=== PATIENT | female | born 1945 | race Caucasian/White ===

== ENCOUNTER → 2019-07-06 | Outpatient (REF) | payer MEDICARE, BC ==
[2019-07-09 00:06] LABS: ANA (HEP2) Positive (.); Lyme Disease IgG/IgM Antibodie <0.91 ISR (0.00-0.90); Lyme Disease IgM Ab Quantitati <0.80 index (0.00-0.79)
== END ==
LOC: M SFHCCLAY 10:01
PROVIDERS: ATTEND Nurse Practitioner Family
DX: M25.50 Pain in unspecified joint (principal)
CPT/HCPCS: 85652; 86038; 86431; 86617; G0463

== ENCOUNTER → 2020-05-13 | Outpatient (CLI) | payer MEDICARE, BC ==
--- NOTE | 2020-05-13 15:31 | REP ---
Clinical: Muscle sprain. Pain. Technique: AP, lateral, swimmers views of the thoracic spine. Findings: Alignment and kyphosis maintained. Generalized age-related osteopenia and moderate multilevel degenerative changes noted. Findings include minimal marginal spurring and subtle disc space narrowing. No acute fracture / compression injury or subluxation. Impression: No acute fracture / compression injury or subluxation. Electronically Signed by Mario Dixon MD 05/13/2020 03:22 P
== END ==
LOC: M WUC 14:05
PROVIDERS: ATTEND Physician Assistant
DX: S29.012A Strain of muscle and tendon of back wall of thorax, initial encounter (principal); X58.XXXA Exposure to other specified factors, initial encounter; Y92.89 Other specified places as the place of occurrence of the external cause

== ENCOUNTER → 2020-07-17 | Outpatient (REF) | payer MEDICARE, BC ==
[2020-07-24 11:14] LABS: DRVV SCREEN 46.3 SEC
[2020-07-24 11:32] LABS: PTT LUPUS TYPE ANTICOAG SCREEN 1.1 (0-1.2)
[2020-07-25 13:07] LABS: ANTI THROMBIN 3 ANTIGEN IMMUNO 104 % (72-124); ANTI THROMBIN 3 FUNCT ACTIVITY 112 % (75-135); BETA-2 GLYCOPROTEIN I ABY IGA <9 (0-25); BETA-2 GLYCOPROTEIN I ABY IGG <9 (0-20); BETA-2 GLYCOPROTEIN I ABY IGM <9 (0-32); CARDIOLIPIN IGA ANTIBODY <9 APL U/mL (0-11); CARDIOLIPIN IGG ANTIBODY <9 GPL U/mL (0-14); CARDIOLIPIN IGM ANTIBODY 11 MPL U/mL (0-12); PROTEIN C ANTIGEN 130 % (60-150); PROTEIN C FUNCTIONAL ACTIVITY 174 % (73-180); PROTEIN S ANTIGEN FREE 128 % (57-157); PROTEIN S ANTIGEN TOTAL 124 % (60-150); PROTEIN S FUNCTIONAL ACTIVITY 100 % (63-140)
== END ==
LOC: M SFHCCLAY 16:17
PROVIDERS: ATTEND Nurse Practitioner Family
DX: Z86.718 Personal history of other venous thrombosis and embolism (principal)

== ENCOUNTER 2021-04-24 09:46 | Emergency (ER) | payer MEDICARE, BC ==
[~2021-04-24] VITALS: Ht 170.2 cm; Wt 80.5 kg
[2021-04-24] MEDS ORDERED: NEUR100C PO (10:00)
[2021-04-24] MEDS ORDERED: ROSU10TA6 PO (10:00)
[2021-04-24] MEDS ORDERED: NITR0.4S14 SL (10:00)
[2021-04-24] MEDS ORDERED: AMLO1TAB25 PO (10:00)
[2021-04-24] MEDS ORDERED: B-12100021 PO (10:00)
[2021-04-24] MEDS ORDERED: GABA-283 PO (10:00)
[2021-04-24] MEDS ORDERED: PANT40TA29 PO (10:00)
[2021-04-24] MEDS ORDERED: VITACAP31 PO (10:01)
[2021-04-24] MEDS ORDERED: SERT25TA85 PO (10:01)
[2021-04-24] MEDS ORDERED: ASPIRIN 81 MG CHEW TABLET PO ONE (10:50)
[2021-04-24 10:54] LABS: BASO % 0.6 % (0.0-1.0); EOS # 0.1 10^3/uL (0.0-0.5); HEMATOCRIT 35.2 % (36.0-47.0); LYMPH # 0.5 10^3/uL (1.5-5.0); LYMPH % 9.9 % (24.0-44.0); MEAN CORPUSCULAR HEMOGLOBIN 27.8 pg (27.0-33.0); MEAN CORPUSCULAR HGB CONC 31.3 g/dl (32.0-36.5); MEAN CORPUSCULAR VOLUME 89.1 fl (80.0-96.0); MONO # 0.5 10^3/uL (0.0-0.8); MONO % 9.9 % (2.0-8.0); NEUTROPHILS # 3.9 10^3/uL (1.5-8.5); NEUTROPHILS % 77.2 % (36.0-66.0); PLATELET COUNT, AUTOMATED 219 10^3/uL (150-450); RED BLOOD COUNT 3.95 10^6/uL (4.00-5.40)
--- NOTE | 2021-04-24 10:58 | REP ---
INDICATION: CHEST PAIN COMPARISON: None. TECHNIQUE: Portable AP view of the chest FINDINGS: The mediastinum and cardiac silhouette are within normal limits for portable technique. The lung ramsay are clear without acute consolidation, effusion, or pneumothorax. Skeletal structures are intact. IMPRESSION: No acute cardiopulmonary process appreciated. <Electronically signed by Mario Dixon > 04/24/21 1054
[2021-04-24 11:27] LABS: BLOOD UREA NITROGEN 15 MG/DL (7-18); CALCIUM LEVEL 8.4 MG/DL (8.8-10.2); CARBON DIOXIDE LEVEL 30 MEQ/L (21-32); CHLORIDE LEVEL 109 MEQ/L (98-107); CREATININE FOR GFR 0.52 MG/DL (0.55-1.30); GLOMERULAR FILTRATION RATE > 60.0 (>39); GLUCOSE, FASTING 99 MG/DL (70-100); POTASSIUM SERUM 4.3 MEQ/L (3.5-5.1); SODIUM LEVEL 141 MEQ/L (136-145)
[2021-04-24 11:28] LABS: CK-MB VALUE MASS 1.9 NG/ML (<3.6); CPK CREATINE PHOSPHOKINASE 106 U/L (26-192); MB/CK RELATIVE INDEX 1.79 (< OR =4); TROPONIN I < 0.02 NG/ML (< 0.10)
[2021-04-24 16:35] LABS: NT-PRO BNP 189 PG/ML (<125)
--- NOTE | 2021-04-24 18:02 | ECGEPIP ---
[facility] - ED Test Date: 2021-04-24 Pat Name: DOUG LUCERO Department: Room: - Gender: Female Manager Technical Sales: LR : 1945 Requested By: Alex Wolf Order Number: [id number] Reading MD: Imelda Chin Measurements Intervals [place] Rate: 63 P: 18 MT: 160 QRS: -11 QRSD: 146 T: 113 QT: 446 QTc: 456 Interpretive Statements Normal sinus rhythm Left bundle branch block No prior Electronically Signed on 04-24-2021 18:02:42 EDT by Imelda Chin
[2021-04-24] MEDS ORDERED: CLOPIDOGREL 75 MG TAB PO ONE (18:30)
[2021-04-24 19:14] LABS: RSV AMPLIFICATION NEGATIVE (NEGATIVE)
[2021-04-24 19:41] VITALS: BP 155/75
== END 2021-04-24 19:49 | disposition short-term general hospital (02) ==
LOC: M ED 09:46
DX: I20.0 Unstable angina (principal); I44.7 Left bundle-branch block, unspecified; I10 Essential (primary) hypertension; R06.02 Shortness of breath; E78.5 Hyperlipidemia, unspecified; M54.9 Dorsalgia, unspecified

== ENCOUNTER → 2021-07-15 | Outpatient (CLI) | payer MEDICARE, BC ==
[~2021-07-15] MED LIST: AMLO1TAB25 PO; B-12100021 PO; GABA-283 PO; NEUR100C PO; NITR0.4S14 SL; PANT40TA29 PO; ROSU10TA6 PO; SERT25TA85 PO; VITACAP31 PO
--- NOTE | 2021-07-15 13:55 | PFTRPT ---
Site: [facility], [address] [place] [address], [id number] ID: [id number] Name: DOUG LUCERO Visit Date: 07/15/2021 Second ID: [id number] Referring Doctor: LIZ LUONG Reviewing Doctor: Varun Garcia MD Court Orderly: Buddy SUAREZ RRT Age: 76 : 1945 Sex: Female Race: Height: 66.00 Inches Weight: 173.00 Lbs BSA: 1.88 Order IDs: [id number] Requested Test(s): <RESP-PFT.PFT B/A> Diagnosis: R05 test meet the ATS standards for acceptability and repeatability. Pt was given four puffs of albuterol for post bronchodilator. Review Status: Not Reviewed Pre-Bronch Post-Bronch Pred Actual %Pred Actual %Chng SPIROMETRY FVC (L) 3.09 3.43 111 3.50 1 FEV1 (L) 2.33 2.70 115 2.86 6 FEV1/FVC (%) 75 79 105 82 4 FEF 25% (L/sec) 4.85 7.01 144 7.41 5 FEF 50% (L/sec) 3.22 3.38 104 4.37 29 FEF 75% (L/sec) 0.88 0.90 101 1.15 27 FEF 25-75% (L/sec) 1.82 2.45 134 3.30 34 FEF Max (L/sec) 5.63 7.32 130 8.09 10 FIVC (L) 3.26 3.43 5 FIF 50% (L/sec) 3.31 3.25 98 4.30 32 FIF Max (L/sec) 3.53 4.67 32 MVV (L/min) 88 87 98 Expiratory Time (sec) 7.71 7.34 -4 Back Extrap Vol (L) 0.12 0.12 -1 Time To FEFmax (sec) 0.084 0.075 -11 LUNG VOLUMES SVC (L) 2.98 3.43 115 IC (L) 2.27 2.87 126 ERV (L) 0.71 0.56 78 TGV (L) 3.08 3.59 116 RV (Pleth) (L) 2.37 3.03 127 TLC (Pleth) (L) 5.35 6.46 120 RV/TLC (Pleth) (%) 45 47 104 DIFFUSION DLCOunc (ml/min/mmHg) 20.86 16.02 76 DLCOcor (ml/min/mmHg) 20.86 16.98 81 DL/VA (ml/min/mmHg/L) 3.90 3.27 83 VA (L) 5.35 5.19 96 BHT (sec) 9.99 IVC (L) 3.12 TLC (SB) (L) 5.34 AIRWAYS RESISTANCE Raw (cmH2O/L/s) 1.86 0.79 42 Gaw (L/s/cmH2O) 1.03 1.28 124 sRaw (cmH2O*s) 4.76 2.65 55 sGaw (1/cmH2O*s) 0.20 0.38 189 BLOOD GASES Hgb (gm/dL) 11.7
== END ==
LOC: M CARPUL 13:01
PROVIDERS: ATTEND Nurse Practitioner Family
DX: R05 Cough (principal)

== ENCOUNTER → 2021-07-17 | Outpatient (CLI) | payer MEDICARE, BC ==
[~2021-07-17] MED LIST changes: +METHACHOLINE KIT (J7674) INH ONE
--- NOTE | 2021-07-17 08:28 | PFTRPT ---
Site: [facility], [address] [place], [address] ID: [id number] Name: DOUG LUCERO Visit Date: 07/17/2021 Second ID: [id number] Referring Doctor: LIZ LUONG Reviewing Doctor: Varun Garcia MD Driver License Agent: Buddy SUAREZ RRT Age: 76 : 1945 Sex: Female Race: Height: 66.00 Inches Weight: 173.00 Lbs BSA: 1.88 Order IDs: [id number] Requested Test(s): <RESP-PFT.METH CHAL> Diagnosis: R06.00 of albuterol for post bronchodilator. Review Status: Not Reviewed Pre-Bronch Post-Bronch Pred Actual %Pred Actual %Chng SPIROMETRY FVC (L) 3.09 3.37 108 3.21 -4 FEV1 (L) 2.33 2.70 115 2.60 -3 FEV1/FVC (%) 75 80 106 81 1 FEF 25% (L/sec) 4.85 6.47 133 6.61 2 FEF 50% (L/sec) 3.22 3.51 108 3.32 -5 FEF 75% (L/sec) 0.88 0.90 102 0.67 -25 FEF 25-75% (L/sec) 1.82 2.63 144 2.22 -15 FEF Max (L/sec) 5.63 6.70 119 7.32 9 FIVC (L) 3.13 3.08 -1 FIF 50% (L/sec) 3.31 3.40 102 3.81 12 FIF Max (L/sec) 3.77 4.11 9 Expiratory Time (sec) 7.17 6.82 -4 Back Extrap Vol (L) 0.12 0.11 -8 Time To FEFmax (sec) 0.089 0.072 -18
== END ==
LOC: M CARPUL 07:39
PROVIDERS: ATTEND Nurse Practitioner Family
DX: R06.00 Dyspnea, unspecified (principal); R05 Cough
CPT/HCPCS: 94070; 95070; J7674

== ENCOUNTER → 2022-05-06 | Outpatient (REF) | payer MEDICARE, BC ==
[~2022-05-06] MED LIST changes: -METHACHOLINE KIT (J7674) INH ONE
== END ==
LOC: M SFHCCLAY 07:27
PROVIDERS: ATTEND Family Medicine
DX: E55.9 Vitamin D deficiency, unspecified (principal)

== ENCOUNTER → 2023-06-24 | Outpatient (REF) | payer MEDICARE, BC ==
[~2023-06-24] MED LIST changes: -GABA-283 PO; +GABA-284 PO
[2023-06-24 17:34] LABS: RHEUMATOID FACTOR QUANT < 3.5 IU/ML (<14)
== END ==
LOC: M SFHCCLAY 09:48
PROVIDERS: ATTEND Nurse Practitioner Family
DX: R76.8 Other specified abnormal immunological findings in serum (principal)

== ENCOUNTER → 2024-06-01 | Outpatient (REF) | payer MEDICARE, BC ==
[~2024-06-01] MED LIST changes: -ROSU10TA6 PO; +ROSU10TA61 PO
[2024-06-01 18:11] LABS: BASO # 0.1 10^3/uL (0.0-0.2); BASO % 0.9 % (0.0-1.0); EOS # 0.3 10^3/uL (0.0-0.5); EOS % 4.8 % (0.0-3.0); HEMATOCRIT 41.9 % (36.0-47.0); HEMOGLOBIN 13.3 g/dl (12.0-15.5); LYMPH # 0.9 10^3/uL (1.5-5.0); LYMPH % 17.5 % (24.0-44.0); MEAN CORPUSCULAR HEMOGLOBIN 28.2 pg (27.0-33.0); MEAN CORPUSCULAR HGB CONC 31.7 g/dl (32.0-36.5); MONO # 0.6 10^3/uL (0.0-0.8); MONO % 11.7 % (2.0-8.0); NEUTROPHILS # 3.5 10^3/uL (1.5-8.5); NEUTROPHILS % 64.9 % (36.0-66.0); PLATELET COUNT, AUTOMATED 212 10^3/uL (150-450); RED BLOOD COUNT 4.71 10^6/uL (4.00-5.40); WHITE BLOOD COUNT 5.4 10^3/uL (4.0-10.0)
[2024-06-01 18:23] LABS: C REACTIVE PROTEIN QUANTITATIV < 0.40 MG/DL (<1.0)
[2024-06-01 18:25] LABS: ALBUMIN 3.9 G/DL (3.2-5.2); ALKALINE PHOSPHATASE 89 U/L (46-116); ALT/SGPT 26 U/L (7.0-40); AST/SGOT 28 U/L (<34); BILIRUBIN,TOTAL 0.6 MG/DL (0.3-1.2); BLOOD UREA NITROGEN 17 MG/DL (9-23); CALCIUM LEVEL 9.8 MG/DL (8.3-10.6); CARBON DIOXIDE LEVEL 30 MMOL/L (20-31); CHLORIDE LEVEL 108 MMOL/L (98-107); CREATININE FOR GFR 0.61 MG/DL (0.55-1.30); GLOMERULAR FILTRATION RATE > 60.0 (>39); GLUCOSE, FASTING 74 MG/DL (74-106); POTASSIUM SERUM 4.4 MMOL/L (3.5-5.1); SODIUM LEVEL 141 MMOL/L (136-145); TOTAL PROTEIN 6.8 G/DL (5.7-8.2)
[2024-06-01 18:48] LABS: ERYTHROCYTE SEDIMENTATION RATE 19 mm/hr (0-30)
== END ==
LOC: M SFHCCLAY 09:09
PROVIDERS: ATTEND Physician Assistant
DX: R51.9 Headache, unspecified (principal); Z79.899 Other long term (current) drug therapy

== ENCOUNTER → 2024-06-27 | Outpatient (CLI) | payer MEDICARE, BC | LOC: M CLY 09:34 | PROVIDERS: ATTEND Nurse Practitioner Family | DX: S92.902D Unspecified fracture of left foot, subsequent encounter for fracture with routine healing (principal); M19.072 Primary osteoarthritis, left ankle and foot; Y93.9 Activity, unspecified; Y92.9 Unspecified place or not applicable ==

== ENCOUNTER → 2025-06-27 | Outpatient (REF) | payer MEDICARE, BC | LOC: M SFHCDERM 17:45 | PROVIDERS: ATTEND Dermatology | DX: D48.5 Neoplasm of uncertain behavior of skin (principal) ==